=== PATIENT | female | born 1990 | race American Indian/Alaskan Native ===

== ENCOUNTER 2019-09-25 20:49 | Emergency (ER) | payer SELFPAY ==
[2019-09-25 22:12] VITALS: BP 107/64
== END 2019-09-25 22:12 | disposition left against medical advice (07) ==
LOC: ED 20:49
DX: R51 Headache (principal); Z53.21 Procedure and treatment not carried out due to patient leaving prior to being seen by health care provider

== ENCOUNTER 2022-01-14 22:06 | Outpatient (CLI) | payer MEDICAID ==
[2022-01-15] MEDS ORDERED: LACTATED RINGERS 500 ML IV ONE (01:39)
[2022-01-15] MEDS ORDERED: ACETAMINOPHEN 325 MG TAB PO ONE (01:41)
[2022-01-15] MEDS ORDERED: BUTORPHANOL 2 MG/1 ML INJ IV PRN (02:33)
[2022-01-15 04:32] LABS: Bacteria,Urine 4+ /HPF (Negative); Calcium Oxalate Crystals,Urine 3+; Hyaline Casts,Urine 2 /LPF; Mucus,Urine FEW /HPF
[2022-01-15 04:37] LABS: Bilirubin,Urine NEG (Negative); Color,Urine Straw (Yellow)
[2022-01-15 04:38] LABS: Blood,Urine Moderate (Negative); Urobilinogen,Urine < 2.0 mg/dL (<2.0)
--- NOTE | 2022-01-15 04:44 | Ultrasound Report ---
ULTRASOUND BIOPHYSICAL PROFILE INDICATION: labor. COMPARISON: None available. FINDINGS: BREATHING MOVEMENT = 2 GROSS BODY MOVEMENT = 2 TONE = 2 QUALITATIVE AMNIOTIC FLUID VOLUME = 2 TOTAL BIOPHYSICAL SCORE = 03/15 PRESENTATION: Cephalic. HEART RATE (beats per minute): 137 IMPRESSION: 1. biophysical profile = 03/15 Signer Name: Bandar Peterson MD Signed: 01/15/2022 4:40 AM Workstation Name: [id number]
--- NOTE | 2022-01-15 07:08 | Ultrasound Report ---
ULTRASOUND ABDOMEN, COMPLETE INDICATION / CLINICAL INFORMATION: Pain. COMPARISON: No relevant prior imaging study available. FINDINGS: PANCREAS: No significant abnormality. ABDOMINAL AORTA: No significant abnormality. IVC: No significant abnormality.. LIVER: The liver measures 15.1 cm in length. No significant abnormality. Normal hepatopedal blood fl ow in the main portal vein. GALLBLADDER: No significant abnormality. BILE DUCTS: No significant abnormality. Common bile duct measures 4 mm. KIDNEYS: Right: 9.9 cm in length. Mild hydronephrosis Left: 10.2 cm in length. Tiny punctate non obstructing intrarenal stones SPLEEN: No significant abnormality. FREE FLUID: None. ADDITIONAL FINDINGS: Intrauterine fetus IMPRESSION: 1. Mild right-sided hydronephrosis mostly secondary to extrinsic compression from the enlarged gravid uterus 2. Left nephrolithiasis Signer Name: Bandar Peterson MD Signed: 01/15/2022 7:04 AM Workstation Name: [id number]
--- NOTE | 2022-01-15 07:14 | Ultrasound Report ---
ULTRASOUND OBSTETRIC LIMITED INDICATION / CLINICAL INFORMATION: labor. Clinical Gestational Age (GA): 31.0 weeks.days COMPARISON: None available. FINDINGS: HEART RATE (beats per minute): 137 AMNIOTIC FLUID INDEX (cm) = visually normal (normal = 7-24 cm) PRESENTATION: Cephalic. ADDITIONAL FINDINGS: Placenta posterior fundal grade 1 IMPRESSION: 1. No significant abnormality. Signer Name: Bandar Peterson MD Signed: 01/15/2022 7:09 AM Workstation Name: [id number]
--- NOTE | 2022-01-15 09:31 | History and Physical Report ---
History of Present Illness Date of examination: 01/15/22 Date of admission: 01/15/22 Chief complaint: Left sided flank pain x 3days. 31 wks . History of present illness: at 31+ wks. Fetus moving normally, no vaginal bleeding or contractions. Microscopic hematuria. Nephrolithiasis on left side as per ultrasound exam this morning. Afebrile. Past History Past Medical History: no pertinent history - Obstetrical History Expected Date of Delivery: 03/17/22 Actual Gestation: 31 Week(s) 2 Day(s) : 4 Medications and Allergies Allergies Allergy/AdvReac Type Severity Reaction Status Date / Time No Known Allergies Allergy Verified 09/25/19 20:59 Active Meds: Active Medications Butorphanol Tartrate (Butorphanol 2 Mg/1 Ml Inj) 1 mg IV Q2H PRN PRN Reason: Pain, Moderate(4-6) LABOR PAIN Review of Systems All systems: negative Constitutional: no fever, no chills Cardiovascular: no chest pain, no dyspnea on exertion Respiratory: no cough, no pain Gastrointestinal: abdominal pain Genitourinary: hematuria, other (left flank pain.), no vaginal bleeding, no vaginal discharge, no leakage of fluid, no contractions Rectal Exam: deferred Psychiatric: no anxiety - Vital Signs Vital signs: Vital Signs Temp 98.1 F 01/15/22 00:20 Temp Pulse Resp BP Pulse Ox 98.1 F 01/15/22 00:20 - Physical Exam Lungs: Positive: Normal air movement Abdomen: Positive: normal appearance, soft, distention, normal bowel sounds. Negative: tenderness Uterus: Positive: enlarged, normal contour Extremities: Positive: normal Deep Tendon Reflex Grade: Normal +2 - Obstetrical FHR comments: BPP normal Uterine Contraction Pattern: Absent Results Abnormal lab results 01/15/22 Range/Units 02:32 Urine Blood Moderate A (Negative) Urine WBC (Auto) 7.0 H (0.0-6.0) /HPF All other labs normal. Assessment and Plan - Patient Problems (1) 31 weeks gestation of Current Visit: Yes Status: Acute Plan to address problem: is unencumbered and will continue through care. (2) Nephrolithiasis Current Visit: Yes Status: Acute Plan to address problem: For urologist to manage, possibly as outpatient. No urologist on staff at [facility].
[2022-01-15 14:53] VITALS: BP 114/67
== END 2022-01-15 11:49 | disposition home or self-care (01) ==
LOC: TRG 22:06 → APU 22:08 → TRG 01-15 11:49
PROVIDERS: ATTEND Obstetrics & Gynecology
DX: Z34.93 Encounter for supervision of normal pregnancy, unspecified, third trimester (principal); Z3A.31 31 weeks gestation of pregnancy
CPT/HCPCS: 36415; 59025; 76700; 76815; 76819; 81001; 87086; 89050

== ENCOUNTER 2022-01-18 16:20 | Outpatient (CLI) | payer MEDICAID ==
[2022-01-18 16:56] VITALS: BP 125/71
[2022-01-18] MEDS ORDERED: LACTATED RINGERS 500 ML IV ONE (17:00)
--- NOTE | 2022-01-18 18:29 | Ultrasound Report ---
ULTRASOUND OBSTETRIC LIMITED ULTRASOUND BIOPHYSICAL PROFILE INDICATION / CLINICAL INFORMATION: placenta evaluation. Clinical Gestational Age (GA) in weeks, days: 31, 5 TECHNIQUE: Transabdominal. COMPARISON: None available. FINDINGS: BREATHING MOVEMENT = 2 GROSS BODY MOVEMENT = 2 TONE = 2 QUALITATIVE AMNIOTIC FLUID VOLUME = 2 TOTAL BIOPHYSICAL SCORE = 8/8 HEART RATE (beats per minute): 136 AMNIOTIC FLUID INDEX (cm) = 3.5 (normal = 7-24 cm) PRESENTATION: Cephalic. ADDITIONAL FINDINGS: No evidence of abruption. IMPRESSION: 1. Biophysical Score = 8/8 2. No evidence of abruption. 3. Amniotic fluid index is 3.5 cm. Signer Name: Chet Acevedo MD Signed: 01/18/2022 6:24 PM Workstation Name: [id number]
[2022-01-18 19:14] LABS: Bilirubin,Urine NEG (Negative); Blood,Urine LG (Negative); Color,Urine Red (Yellow)
[2022-01-18 19:25] LABS: Bacteria,Urine 2+ /HPF (Negative)
[2022-01-18 19:31] LABS: RBC,Urine > 182.0 /HPF (0.0-6.0)
[2022-01-18] MEDS ORDERED: OXYTOCIN DRIP 30,000 MILLIUNITS/500 ML BAG IV ONE (22:32)
== END 2022-01-18 20:01 | disposition home or self-care (01) ==
LOC: TRG 16:20 → APU 16:22 → TRG 20:01
PROVIDERS: ATTEND Obstetrics & Gynecology
DX: Z34.93 Encounter for supervision of normal pregnancy, unspecified, third trimester (principal); Z3A.31 31 weeks gestation of pregnancy
CPT/HCPCS: 76815; 76819; 81001

== ENCOUNTER 2022-03-07 05:51 | Outpatient (CLI) | payer MEDICAID | END 2022-03-07 07:23 | disposition home or self-care (01) | LOC: TRG 05:51 → APU 05:52 → TRG 07:23 | PROVIDERS: ATTEND Obstetrics & Gynecology | DX: Z34.93 Encounter for supervision of normal pregnancy, unspecified, third trimester (principal); Z3A.38 38 weeks gestation of pregnancy | CPT/HCPCS: 59025 ==

== ENCOUNTER 2022-03-09 15:56 | Outpatient (CLI) | payer MEDICAID ==
[2022-03-09 16:38] VITALS: BP 112/73
== END 2022-03-09 17:58 | disposition home or self-care (01) ==
LOC: TRG 15:56 → APU 15:57 → TRG 17:58
PROVIDERS: ATTEND Obstetrics & Gynecology
DX: Z34.93 Encounter for supervision of normal pregnancy, unspecified, third trimester (principal); Z3A.38 38 weeks gestation of pregnancy
CPT/HCPCS: 59025

== ENCOUNTER 2022-03-11 08:00 | Inpatient (IN) | payer MEDICAID ==
[2022-03-11] MEDS ORDERED: BICITRA ORAL LIQD 30ML PO ONE ×2 (15:42→19:00)
[2022-03-11] MEDS ORDERED: METOCLOPRAMIDE 10 MG/2 ML INJ IV ONE ×2 (15:42→19:00)
[2022-03-11] MEDS ORDERED: FAMOTIDINE 20 MG/2 ML INJ IV ONE ×2 (15:42→19:00)
[2022-03-11] MEDS ORDERED: LACTATED RINGERS 1,000 ML IV SCH ×2 (15:45→23:00)
[2022-03-11] MEDS ORDERED: fentaNYL 100 MCG/2 ML INJ IV PRN ×3 (15:45→18:10)
[2022-03-11] MEDS ORDERED: METHYLERGONOVINE MALEATE 0.2 MG/ML VIAL IM PRN (15:45)
[2022-03-11] MEDS ORDERED: BUTORPHANOL 2 MG/1 ML INJ IV PRN (15:48)
[2022-03-11] MEDS ORDERED: ACETAMINOPHEN 325 MG TAB PO PRN ×2 (15:48→19:41)
[2022-03-11] MEDS ORDERED: OXYTOCIN DRIP 30 UNITS/500 ML BAG IV SCH ×2 (16:00→20:00)
[2022-03-11] MEDS ORDERED: ceFAZolin/Water 2 GM/20 ML 2 GM/20 ML SYRINGE IV NR (16:00)
--- NOTE | 2022-03-11 16:43 | History and Physical Report ---
History of Present Illness Date of examination: 03/11/22 Date of admission: 03/11/22 15:33 Chief complaint: here for an elective repeat . History of present illness: by . ROXI 03/17/22. Diagnosed with kidney stones during this . Past History Past Medical History: no pertinent history, renal disease, kidney stones Past Surgical History: section Social history: no significant social history - Obstetrical History Expected Date of Delivery: 03/17/22 Actual Gestation: 39 Week(s) 1 Day(s) : 4 Medications and Allergies Allergies Allergy/AdvReac Type Severity Reaction Status Date / Time No Known Allergies Allergy Verified 09/25/19 20:59 Active Meds: Active Medications Acetaminophen (Acetaminophen 325 Mg Tab) 650 mg PO Q4H PRN PRN Reason: Pain, Mild (1-3) Butorphanol Tartrate (Butorphanol 2 Mg/1 Ml Inj) 1 mg IV Q2H PRN PRN Reason: Pain, Moderate(4-6) LABOR PAIN Fentanyl (Fentanyl 100 Mcg/2 Ml Inj) 100 mcg IV Q2H PRN PRN Reason: Pain,Severe (7-10) LABOR PAIN Lactated Ringer's (Lactated Ringers) 1,000 mls @ 2,250 mls/hr IV PREOP JEFFREY Stop: 03/12/22 16:12 Oxytocin/Sodium Chloride (Pitocin/Ns 30 Unit/500ml) 30 units in 500 mls @ 0 mls/hr IV TITR JEFFREY; Protocol Cefazolin Sodium (Ancef/Sterile Water 2 Gm/20 Ml) 2 gm in 20 mls @ 80 mls/hr IV PREOP NR; Protocol Stop: 03/12/22 15:59 Methylergonovine Maleate (Methylergonovine Maleate 0.2 Mg/Ml Vial) 0.2 mg IM ONCE PRN PRN Reason: Uterine Bleeding Review of Systems All systems: negative - Vital Signs Vital signs: Vital Signs Pulse Pulse Ox 101 H 89 03/11/22 15:57 03/11/22 15:57 Temp Pulse Resp BP Pulse Ox 101 H 118/76 98 03/11/22 16:34 03/11/22 15:59 03/11/22 16:34 - Physical Exam Cardiovascular: Normal S1, Normal S2 Lungs: Positive: Normal air movement Abdomen: Positive: normal appearance, distention, normal bowel sounds Uterus: Positive: enlarged, normal contour Extremities: Positive: normal Deep Tendon Reflex Grade: Normal +2 - Obstetrical FHR: auscultation normal Results All other labs normal. Assessment and Plan - Patient Problems (1) with 39 completed weeks gestation Current Visit: Yes Status: Acute (2) Previous delivery affecting Current Visit: Yes Status: Acute Plan to address problem: For repeat delivery today. (3) Kidney stone complicating Current Visit: Yes Status: Acute
[2022-03-11 17:34] LABS: Basophils % (Auto) 0.6 % (0.0-1.8); Eosinophils # (Auto) 0.1 K/mm3 (0.0-0.4); Eosinophils % (Auto) 1.1 % (0.0-4.3); Hematocrit 29.4 % (30.3-42.9); Hemoglobin 9.9 gm/dl (10.1-14.3); Lymphocytes # (Auto) 1.7 K/mm3 (1.2-5.4); Lymphocytes % (Auto) 26.6 % (13.4-35.0); Mean Corpuscular HGB Conc 34 % (30-34); Mean Corpuscular Volume 89 fl (79-97); Monocytes # (Auto) 0.8 K/mm3 (0.0-0.8); Monocytes % (Auto) 12.1 % (0.0-7.3); Platelet Count 236 K/mm3 (140-440); Red Cell Distribution Width 14.1 % (13.2-15.2)
[2022-03-11] MEDS ORDERED: SODIUM CHLORIDE 0.9% IRR 1,500 ML BOTTLE IR ONE (18:35)
[2022-03-11] MEDS ORDERED: WATER FOR IRRIG STERILE 1,500 ML BOTTLE IR ONE (18:35)
[2022-03-11] MEDS ORDERED: ceFAZolin/STERILE WATER 2 GM/20 ML SYRINGE IV ONE (18:40)
[2022-03-11] MEDS ORDERED: BUPIVACAINE/PF (0.5%) 5 MG/1 ML 30 ML VIAL INFILTRATI ONE (18:44)
[2022-03-11] MEDS ORDERED: PHENYLEPHRINE/NS 1,000 MCG/10 ML SYRINGE (OR USE) IV ONE (18:45)
[2022-03-11] MEDS ORDERED: ONDANSETRON 4 MG/2 ML INJ ONE (18:45)
[2022-03-11] MEDS ORDERED: dexAMETHasone 20 MG/5 ML VIAL ONE (18:45)
[2022-03-11] MEDS ORDERED: MORPHINE 2 MG/1 ML INJ IV PRN (19:41)
[2022-03-11] MEDS ORDERED: LANOLIN/ZINC/DIMETHICONE (LANSINOH) 7 GM TP PRN (19:41)
[2022-03-11] MEDS ORDERED: HYDROcodone/ACETAMINOPHEN 5-325 MG TAB PO PRN (19:41)
[2022-03-11] MEDS ORDERED: KETOROLAC 30 MG/1 ML INJ IV PRN ×2 (19:41)
[2022-03-11] MEDS ORDERED: NALOXONE 0.4 MG/1 ML INJ IV PRN (19:41)
[2022-03-11] MEDS ORDERED: MORPHINE 4 MG/1 ML INJ IV PRN (19:41)
[2022-03-11] MEDS ORDERED: WITCH HAZEL/ GLYCERIN PAD TP PRN (19:41)
[2022-03-11] MEDS ORDERED: IBUPROFEN 600 MG TAB PO PRN (19:41)
--- NOTE | 2022-03-11 19:51 | Operative Report ---
Operative Report Operative Report: Date of surgery: March 11, 2020 Preoperative diagnoses: 39 weeks and 1 day gestation, previous section, kidney stones, peritoneal adhesion Postoperative diagnoses: The same. Operation: Lower segment transverse delivery, lysis of adhesion Surgeon:Antoni Leger MD Community Engagement Coordinator:Margarette Colni CRNA Anesthesia: Spinal block Quantitative blood loss: 600 mL Complications: None Findings: Live baby boy in vertex. Apgars 8/9. weight 7 pounds 10 ounces. Both ovaries and fallopian tubes were grossly normal. The uterus was grossly normal. The lower aspect of the greater omentum was adherent to the anterior parietal peritoneum over the left adnexa. Procedure in detail: The patient was taken to the operating room and given a spinal block. Patient was placed in the straight supine position and a Krishnamurthy catheter was inserted. The patient was prepped in the abdomen. The drapes were placed. A timeout was done. With the go ahead from the section forest fire warden, a Pfannenstiel incision was made. This incision was carried across the subcutaneous layer to the fascia which was also divided transversely. The recti abdominis muscle flaps were stripped from the fascia using a combination of blunt and sharp dissections. The muscles were in the midline to gain access to the anterior parietal peritoneum which was divided after excluding any underlying viscera. The access to the peritoneal cavity was then widened by manual stretching. The bladder blade was applied. The utero vesicle peritoneal flap was divided transversely allowing the bladder to be displaced caudally. The uterine incision was placed in the lower segment transversely. The uterine incision was carried to the decidual layer. The uterine incision was extended on both sides using the bandage scissors. The amniotic sac was ruptured with clear fluid. The head was lifted out of the false maternal pelvis and delivered through the incision using fundal pressure combined with traction using the Kiwi. The airways were bulb suctioned beginning with the mouth. Continuing fundal pressure combined with traction on the mandibular processes of the jaw delivered the rest of the baby. The umbilical cord was double clamped and divided. The baby was carefully transferred to the pediatric team. The placenta was manually removed from the uterine cavity. The uterine cavity was explored and was empty of any placental remnants. The uterine incision was repaired in 2 layers with #1 Vicryl. The surgical line on the uterus was hemostatic. The described peritoneal adhesion was divided in between 2 clamps of Kellymathew, divided and tied off with #1 Vicryl. Hemostasis was good. Blood and clots were cleared from the peritoneal cavity. The anterior parietal peritoneum was repaired with #1 Vicryl. The fascia was repaired with #1 Vicryl. The subcutaneous layer was made hemostatic using the Bovie before the skin was closed subcuticularly with 4-0 Vicryl. There were no complications. The quantitative blood loss was 600 mL. All sponges and instrument counts were correct. Patient was safely transferred to the recovery room.
--- NOTE | 2022-03-11 23:08 | Progress Note ---
Spinal Anesthesia Block - Spinal Anesthesia Block Start Time: 18:20 Stop Time: 18:27 Performed by:: KARYNA LANE Procedure: Patient IDed, H&P reviewed, all questions and concerns were answered, and consent was signed. Timeout was performed at bedside. Patient in sitting position. Sterile prep and drape was performed. [3] ml of 1% lidocaine skin wheal at L[3]- L [4]. Needle introducer advanced. 24 gauge spinal needle advanced. Clear, free flowing CSF. negative blood, negative paresthesia. Spinal dose given. All needles removed. Patient tolerated procedure.
--- NOTE | 2022-03-11 23:09 | Anesthesia Day of Surgery ---
Anesthesia Day of Surgery - Day of Surgery Patient Examined: Yes Patient H&P Reviewed: Yes Patient is NPO: Yes
--- NOTE | 2022-03-11 23:09 | Anesthesia Consultation ---
Anesthesia Consult and Med Hx Date of service: 03/11/22 - Airway Anesthetic Teeth Evaluation: Good ROM Head & Neck: Adequate Mental/Hyoid Distance: Adequate Mallampati Class: Class II Intubation Access Assessment: Probably Good - Pulmonary Exam CTA: Yes - Cardiac Exam Cardiac Exam: RRR - Pre-Operative Health Status ASA Pre-Surgery Classification: ASA2 Proposed Anesthetic Plan: Spinal - Pulmonary Hx Smoking: No Hx Asthma: No COPD: No Hx Pneumonia: No - Cardiovascular System Hx Hypertension: No - Central Nervous System Hx Seizures: No CVA: No Hx Psychiatric Problems: No - Endocrine Hx Renal Disease: No Hx End Stage Renal Disease: No Hx Liver Disease: No Hx Non-Insulin Dependent Diabetes: No Hx Hypothyroidism: No Hx Hyperthyroidism: No - Hematic Hx Anemia: No Hx Sickle Cell Disease: No - Other Systems Hx Alcohol Use: No Hx Substance Use: Yes (Hx of Marijuana use - stopped with ) Hx Cancer: No Hx Obesity: No - Additional Comments Anesthesia Medical History Comments: no hx of anesthetic complications
[2022-03-12 07:47] LABS: Hematocrit 28.9 % (30.3-42.9); Hemoglobin 9.3 gm/dl (10.1-14.3)
[2022-03-12] MEDS: IBUPROFEN 800 MG TAB PO PRN ×3 (08:13→21:25)
--- NOTE | 2022-03-12 10:18 | Progress Note ---
Assessment and Plan - Patient Problems (1) with 39 completed weeks gestation Current Visit: Yes Status: Resolved (2) Previous delivery affecting Current Visit: Yes Status: Chronic (3) Kidney stone complicating Current Visit: Yes Status: Chronic (4) Status post delivery Current Visit: Yes Status: Acute Plan to address problem: stable. Subjective - Subjective Date of service: 03/12/22 Principal diagnosis: status post day 1. Interval history: by . ROXI 03/17/22. Diagnosed with kidney stones during this . Day 1 post c/s. Doing great and wishes to leave early tomorrow. Patient reports: appetite normal, voiding normally, pain well controlled, ambulating normally [place]: doing well Objective - Vital Signs Latest vital signs: Vital Signs Temp Pulse Resp BP BP Pulse Ox Pulse Ox 03/12/22 07:24 98.0 F 67 16 101/64 99 03/12/22 05:04 97.8 F 70 18 99/60 98 03/12/22 01:33 97.4 F L 58 L 18 99/59 99 03/11/22 21:30 97.6 F 65 16 104/35 100 100 03/11/22 20:55 76 15 117/51 100 03/11/22 20:50 61 16 112/41 100 03/11/22 20:45 64 14 108/43 100 03/11/22 20:40 67 16 104/57 100 03/11/22 20:35 67 15 103/52 100 03/11/22 20:31 70 16 93/50 100 03/11/22 20:25 62 15 105/53 100 03/11/22 20:23 72 16 104/44 100 03/11/22 20:13 65 15 96/53 100 03/11/22 20:06 65 13 86/44 100 03/11/22 20:00 81 14 93/38 100 03/11/22 19:55 67 15 93/51 100 03/11/22 19:52 97.3 F L 74 15 101/57 100 03/11/22 18:00 88 100 03/11/22 17:55 97 H 97 03/11/22 17:50 104 H 100 03/11/22 17:45 91 H 99 03/11/22 17:29 104 H 100 03/11/22 17:24 97 H 100 03/11/22 17:19 103 H 100 03/11/22 17:14 97 H 100 03/11/22 17:12 102 H 87 03/11/22 17:09 102 H 100 03/11/22 17:04 93 H 99 03/11/22 16:59 93 H 100 03/11/22 16:54 89 100 03/11/22 16:49 88 100 03/11/22 16:44 87 99 03/11/22 16:40 97 H 91 03/11/22 16:39 98.4 F 83 16 98 03/11/22 16:34 101 H 98 03/11/22 16:29 96 H 99 03/11/22 16:24 98 H 98 03/11/22 16:19 94 H 98 03/11/22 16:14 64 93 03/11/22 16:09 85 92 03/11/22 16:07 97 H 99 03/11/22 16:02 99 H 100 03/11/22 15:59 97 H 118/76 03/11/22 15:57 101 H 89 03/11/22 15:55 100 Intake and Output 03/11/22 03/12/22 03/12/22 23:59 07:59 15:59 Intake Total 18 480 Output Total 1650 100 Balance 18 -1170 -100 Intake: IV 18 Right Wrist 18 Intake, Free Water 480 Output: Urine 1650 100 Indwelling 500 Indwelling Catheter 1150 Void 100 Other: Total, Output Amount 500 100 - Exam Cardiovascular: Present: Normal S1, Normal S2 Lungs: Present: Normal air movement Abdomen: Present: normal appearance, soft, normal bowel sounds Uterus: Present: normal, firm Extremities: Present: normal Deep Tendon Reflex Grade: Normal +2 Incision: Present: normal, dry, intact - Labs Labs: Abnormal lab results 03/11/22 03/11/22 03/12/22 Range/Units 16:20 16:20 07:30 RBC 3.30 L (3.65-5.03) M/mm3 Hgb 9.9 L 9.3 L (10.1-14.3) gm/dl Hct 29.4 L 28.9 L (30.3-42.9) % [place] % (Auto) 12.1 H (0.0-7.3) % Crossmatch See Detail
--- NOTE | 2022-03-12 10:20 | Discharge Summary ---
Providers - Providers Date of Admission: 03/11/22 15:33 Date of discharge: 03/13/22 Attending physician: VERNON CHAPMAN MD Primary care physician: VERNON CHAPMAN MD Hospitalization Reason for admission: section, IUP at term Delivery: Procedure: section, repeat low transverse Episiotomy: none Laceration: none Incision: normal, dry, intact Other procedures: none complications: none Discharge diagnosis: IUP at term delivered [place] baby: male Condition at discharge: Good Disposition: 01 HOME / SELF CARE / HOMELESS - Discharge Diagnoses (1) with 39 completed weeks gestation Status: Resolved (2) Previous delivery affecting Status: Chronic (3) Kidney stone complicating Status: Chronic (4) Status post delivery Status: Acute Plan - Provider Discharge Summary Activity: routine, no sex for 6 weeks, no heavy lifting 4 weeks, no strenuous exercise Diet: routine Instructions: routine Additional instructions: [] Smoking cessation referral if applicable(refer to patient education folder for contact #) [] Refer to [facility]'s [facility] Booklet Call your doctor immediately for: * Fever > 100.5 * Heavy vaginal bleeding ( >1 pad per hour) * Severe persistent headache * Shortness of breath * Reddened, hot, painful area to leg or breast * Drainage or odor from incision. * Keep incision clean and dry at all times and follow doctor's instructions regarding bathing/showering - Follow up plan Follow up: VERNON CHAPMAN MD [Primary Care Provider] - 7 Days
[2022-03-12] MEDS: HYDROcodone/ACETAMINOPHEN 5-325 MG TAB PO PRN ×2 (10:34→17:18)
[2022-03-12] MEDS: PRENATAL VIT27-FE FUMARATE-FOLIC ACID VIT TAB PO SCH (10:41)
[2022-03-12] MEDS ORDERED: ALUM-MAG HYDROXIDE-SIMETHICONE 200-200-20MG/5ML ORAL LIQD 30 ML PO PRN ×2 (15:12→17:38)
[2022-03-12] MEDS: SIMETHICONE 80 MG CHEW TAB PO PRN ×2 (15:18→21:25)
[2022-03-12] MEDS ORDERED: MAGNESIUM HYDROXIDE (MOM) ORAL LIQD UDC ONE (17:17)
[2022-03-12] MEDS ORDERED: MAGNESIUM HYDROXIDE (MOM) ORAL LIQD UDC PO PRN (22:00)
[2022-03-13] MEDS: IBUPROFEN 800 MG TAB PO PRN ×2 (05:11→12:25)
[2022-03-13] MEDS: SIMETHICONE 80 MG CHEW TAB PO PRN (05:12)
[2022-03-13 08:47] VITALS: BP 110/69
[2022-03-13] MEDS: PRENATAL VIT27-FE FUMARATE-FOLIC ACID VIT TAB PO SCH (12:25)
== END 2022-03-13 14:25 | disposition home or self-care (01) | DRG 766 ==
LOC: APU 15:33 → OB 21:21
PROVIDERS: ADMIT Obstetrics & Gynecology; ATTEND Obstetrics & Gynecology
PROC: 10D00Z1 Extraction of Products of Conception, Low, Open Approach (ICD-10-PCS; principal; 2022-03-11)
DX: O34.211 Maternal care for low transverse scar from previous cesarean delivery (principal); Z37.0 Single live birth; Z20.822 Contact with and (suspected) exposure to COVID-19; Z3A.39 39 weeks gestation of pregnancy; O99.62 Diseases of the digestive system complicating childbirth; K66.0 Peritoneal adhesions (postprocedural) (postinfection); N20.0 Calculus of kidney; O99.892 Other specified diseases and conditions complicating childbirth
CPT/HCPCS: 36415; 59025; 85014; 85018; 85025; 86850; 86900; 86901; 86920; G0378; J3490; J7121; J0690; J1100; J1885; J2370; J2405; J7120; U0003